=== PATIENT | male | born 2000 | race Caucasian/White ===

== ENCOUNTER 2019-10-18 01:48 | Emergency (ER) | payer MEDICAID ==
[~2019-10-18] VITALS: Ht 177.8 cm; Wt 110.0 kg
--- NOTE | 2019-10-18 03:19 | NUR ---
pt refused blood lab draw
--- NOTE | 2019-10-18 06:12 | NUR ---
pt provided a sandwich and drink
[2019-10-18 06:46] VITALS: BP 136/78
== END 2019-10-18 06:48 | disposition home or self-care (01) ==
LOC: ED 06:24
DX: F32.0 Major depressive disorder, single episode, mild (principal); R07.89 Other chest pain; F17.200 Nicotine dependence, unspecified, uncomplicated; Z76.5 Malingerer [conscious simulation]; Z72.9 Problem related to lifestyle, unspecified
CPT/HCPCS: 71046; 99284

== ENCOUNTER 2019-10-22 02:03 | Emergency (ER) | payer MEDICAID ==
[~2019-10-22] VITALS: Ht 180.3 cm; Wt 110.6 kg
[2019-10-22] MEDS ORDERED: DEXAMETHASONE 4 MG TABLET ONE (02:29)
[2019-10-22] MEDS ORDERED: DEXAMETHASONE 4 MG TABLET PO ONE (02:30)
--- NOTE | 2019-10-22 03:49 | NUR ---
Patient resting in gurney; watching tv.
[2019-10-22 03:51] VITALS: BP 109/64
--- NOTE | 2019-10-22 04:20 | NUR ---
Patient discharge instructions given. All questions and concerns addressed. Patient ambulatory with a steady gait. Belongings with patient.
== END 2019-10-22 04:21 | disposition home or self-care (01) ==
LOC: ED 04:06
DX: B34.9 Viral infection, unspecified (principal)
CPT/HCPCS: 71045; 99283

== ENCOUNTER 2019-10-24 07:03 | Emergency (ER) | payer MEDICAID ==
[~2019-10-24] VITALS: Ht 180.3 cm; Wt 114.0 kg
--- NOTE | 2019-10-24 07:23 | NUR ---
PATIENT BROUGHT BACK FROM TRIAGE WITH CHIEF COMPLAINT OF COUGH FOR A FEW WEEKS, WITH INTERMITTENT CHILLS. PT DENIES N/V, CP, SOB, OR RECENT TRAUMA.
[2019-10-24 08:13] VITALS: BP 145/76
--- NOTE | 2019-10-24 08:17 | NUR ---
DSCHARGE INSTRUCTIONS REVIEWED
== END 2019-10-24 08:27 | disposition home or self-care (01) ==
LOC: ED 08:25
DX: J06.9 Acute upper respiratory infection, unspecified (principal); H10.022 Other mucopurulent conjunctivitis, left eye; J20.9 Acute bronchitis, unspecified; R09.3 Abnormal sputum; F17.200 Nicotine dependence, unspecified, uncomplicated
CPT/HCPCS: 71046; 99283

== ENCOUNTER 2019-10-31 21:40 | Emergency (ER) | payer MEDICAID ==
[~2019-10-31] VITALS: Ht 180.3 cm; Wt 112.2 kg
[2019-10-31] MEDS ORDERED: DIPHENHYDRAMINE 25 MG CAPSULE ONE (22:21)
[2019-10-31] MEDS ORDERED: FAMOTIDINE 20 MG TABLET ONE (22:22)
[2019-10-31] MEDS ORDERED: DIPHENHYDRAMINE 25 MG CAPSULE PO ONE (22:30)
[2019-10-31] MEDS ORDERED: FAMOTIDINE 20 MG TABLET PO ONE (22:30)
--- NOTE | 2019-10-31 23:00 | NUR ---
PT RESTING COMFORTABLY, WATCHING TV. NO NEEDS AT THIS TIME.
--- NOTE | 2019-11-01 00:30 | NUR ---
PT RESTING WITH EYES CLOSED. 3PS ADDRESSED.
[2019-11-01 01:02] VITALS: BP 109/70
== END 2019-11-01 01:18 | disposition home or self-care (01) ==
LOC: ED 11-01 01:12
DX: R07.89 Other chest pain (principal); B86 Scabies
CPT/HCPCS: 71046; 93005; 99283; Q0163

== ENCOUNTER 2019-11-05 19:23 | Emergency (ER) | payer MEDICAID ==
[~2019-11-05] VITALS: Ht 177.8 cm; Wt 110.2 kg
[2019-11-05 19:37] VITALS: BP 102/50
--- NOTE | 2019-11-05 19:41 | NUR ---
Secured room, pt denies SI/SA at this time but states he thought about hurting himself and wants to go to [place] to get help.
[2019-11-05] MEDS ORDERED: CEPHALEXIN 500 MG CAPSULE PO ONE (20:00)
[2019-11-05] MEDS ORDERED: SULFAMETH./TRIMETHOPRIM DS 800MG/160MG TABLET PO ONE (20:00)
[2019-11-05] MEDS ORDERED: CEPHALEXIN 500 MG CAPSULE ONE (20:06)
[2019-11-05] MEDS ORDERED: SULFAMETH./TRIMETHOPRIM DS 800MG/160MG TABLET ONE (20:06)
--- NOTE | 2019-11-05 20:13 | NUR ---
Medicated per MAR, reviewed discharge information and rx with pt, pt verbalized understanding.
== END 2019-11-05 21:19 | disposition home or self-care (01) ==
LOC: ED 20:01
DX: F41.1 Generalized anxiety disorder (principal); L03.116 Cellulitis of left lower limb; L03.115 Cellulitis of right lower limb; B35.3 Tinea pedis; F17.210 Nicotine dependence, cigarettes, uncomplicated
CPT/HCPCS: 99283

== ENCOUNTER 2020-01-28 15:38 | Emergency (ER) | payer MEDICAID ==
[~2020-01-28] VITALS: Ht 180.3 cm; Wt 106.0 kg
[2020-01-28 15:52] VITALS: BP 126/68
--- NOTE | 2020-01-28 15:58 | NUR ---
STEPHANIE. REPORT RECEIVED FROM EMS. PT LIVES AT [facility]F AND STATED"I WILL GET A GUN". [facility] SHOWED UP. PT THREATENED STAFF AT SNF. PT DENIES SI/HI. NO [facility] HOLD BY PRD. PT'S AOX4. RESPS EVEN AND UNLABORED. OFF MEDS FOR 9 MONTHS. PT STATES "I WANNA GO TO [place] AFTER HERE." EDMD AT BEDSIDE TO EVALUATE AT THIS TIME. NO MEDICAL COMPLAINS. PT REFUSED TO CHANGE.
--- NOTE | 2020-01-28 16:59 | NUR ---
Patient given discharge instructions and they have confirmed that they understand the instructions. Patient ambulatory with steady gait.
== END 2020-01-28 17:00 | disposition home or self-care (01) ==
LOC: ED 16:40
DX: F33.9 Major depressive disorder, recurrent, unspecified (principal)
CPT/HCPCS: 99284

== ENCOUNTER 2020-02-01 18:37 | Emergency (ER) | payer MEDICAID ==
[~2020-02-01] VITALS: Ht 177.8 cm; Wt 113.1 kg
[2020-02-01 18:38] VITALS: BP 141/65
[2020-02-01] MEDS ORDERED: IBUPROFEN 600 MG TABLET PO ONE (19:30)
[2020-02-01] MEDS ORDERED: ACETAMINOPHEN 500 MG TABLET PO ONE (19:30)
[2020-02-01] MEDS ORDERED: ACETAMINOPHEN 500 MG TABLET ONE (19:45)
[2020-02-01] MEDS ORDERED: IBUPROFEN 600 MG TABLET ONE (19:45)
== END 2020-02-01 20:39 | disposition home or self-care (01) ==
LOC: ED 19:30
DX: R51 Headache (principal); F17.200 Nicotine dependence, unspecified, uncomplicated; Z72.9 Problem related to lifestyle, unspecified
CPT/HCPCS: 99283

== ENCOUNTER 2020-04-14 22:05 | Emergency (ER) | payer MEDICAID ==
[~2020-04-14] VITALS: Ht 172.7 cm; Wt 94.0 kg
[2020-04-14 22:07] VITALS: BP 120/88
[2020-04-14] MEDS ORDERED: ONDANSETRON ODT 4 MG PO ONE (22:30)
[2020-04-14] MEDS ORDERED: DIPHENHYDRAMINE 25 MG CAPSULE PO ONE (22:30)
[2020-04-14] MEDS ORDERED: ACETAMINOPHEN 325 MG TABLET PO ONE (22:30)
[2020-04-14] MEDS ORDERED: ONDANSETRON ODT 4 MG ONE (23:10)
[2020-04-14] MEDS ORDERED: DIPHENHYDRAMINE 25 MG CAPSULE ONE (23:11)
[2020-04-14] MEDS ORDERED: ACETAMINOPHEN 325 MG TABLET ONE (23:11)
== END 2020-04-14 23:46 ==
LOC: ED 23:00
DX: G43.009 Migraine without aura, not intractable, without status migrainosus (principal)
CPT/HCPCS: 99284; Q0162; Q0163

== ENCOUNTER 2020-04-16 19:30 | Emergency (ER) | payer MEDICAID ==
[~2020-04-16] VITALS: Ht 177.8 cm; Wt 109.1 kg
--- NOTE | 2020-04-16 19:30 | NUR ---
PT IS HOMELESS, BIB [facility]. PER EMS, PT C/O SI AND HI, STATED, "I'M GONNA KNOCK SOMEBODY". ERP AT BEDSIDE IMMEDIATELY. UPON ARRIVAL TO ED, PT REQUESTED TO HAVE FOOD AND WATCH TV. PT RESTLESS, WALKING AROUND ROOM. REPORTS FEELINGS OF SI BUT DENIES ANY PLAN AND STATES, "I'M FEELING LESS SO NOW". RV'WD POC WITH PT. VSS.
[2020-04-16 19:31] VITALS: BP 112/52
--- NOTE | 2020-04-16 19:37 | NUR ---
PER ERP PT SAFE TO DC AFTER MEAL AND [facility] REQ
--- NOTE | 2020-04-16 20:20 | NUR ---
PT EATING CHEETOS FROM HIS BACKPACK AND WATCHING TV. SANDWICH AND WATER PROVIDED. STAFF AT [facility] STATED THAT PT MAY RETURN TO [facility].
--- NOTE | 2020-04-16 20:44 | NUR ---
D/C INSTRUCTIONS & F/U APPT'S RV'WD WITH PT, HE VERBALIZES UNDERSTANDING. CAB VOUCHER PROVIDED TO [facility]. PT AMBULATED OUT OF ED WITHOUT DIFFICULTY.
== END 2020-04-16 20:45 | disposition home or self-care (01) ==
LOC: ED 20:07
DX: F33.9 Major depressive disorder, recurrent, unspecified (principal); R45.851 Suicidal ideations; F17.200 Nicotine dependence, unspecified, uncomplicated; Z76.5 Malingerer [conscious simulation]
CPT/HCPCS: 99283

== ENCOUNTER 2020-04-21 21:27 | Emergency (ER) | payer MEDICAID ==
[~2020-04-21] VITALS: Ht 177.8 cm; Wt 111.0 kg
[2020-04-21 21:54] VITALS: BP 131/79
[2020-04-21 22:35] LABS: BASOPHILS # (AUTO) 0.09 x10^3/uL (0-0.3); BASOPHILS % (AUTO) 1 % (0-1); EOSINOPHILS # (AUTO) 0.15 x10^3/uL (0-0.8); EOSINOPHILS % (AUTO) 2 % (1-7); LYMPHOCYTES # (AUTO) 3.11 x10^3/uL (1-6.1); LYMPHOCYTES % (AUTO) 37 % (22-44); MD NO; MEAN CORPUSCULAR HEMOGLOBIN 27.5 pg (27.5-34.5); MEAN CORPUSCULAR HGB CONC 32.7 g/dL (33.2-36.2); MEAN PLATELET VOLUME 9.1 fL (7.4-10.4); MONOCYTES # (AUTO) 0.69 x10^3/uL (0-1.4); MONOCYTES % (AUTO) 8 % (2-9); NEUTROPHILS # (AUTO) 4.47 x10^3/uL (1.8-8.0); NEUTROPHILS % (AUTO) 53 % (42-75); PLATELET COUNT 291 x10^3/uL (130-400); RED BLOOD COUNT 5.03 x10^6/uL (4.38-5.82); RED CELL DISTRIBUTION WIDTH 13.4 % (9.4-14.8)
[2020-04-21 22:44] LABS: ALANINE AMINOTRANSFERASE 30 U/L (12-78); ALBUMIN 4.1 g/dL (3.4-5.0); ANION GAP 7 mmol/L (5-15); CALCIUM 8.9 mg/dL (8.5-10.1); CHLORIDE 109 mmol/L (98-107); CREATININE 1.08 mg/dL (0.7-1.3)
[2020-04-21 22:50] LABS: ALKALINE PHOSPHATASE 120 U/L (45-117); BILIRUBIN,TOTAL 0.4 mg/dL (0.2-1.0); TOTAL PROTEIN 7.9 g/dL (6.4-8.2)
== END 2020-04-21 23:08 | disposition left against medical advice (07) ==
LOC: ED 21:50
DX: R10.11 Right upper quadrant pain (principal); R10.13 Epigastric pain; R11.0 Nausea
CPT/HCPCS: 36415; 80053; 83690; 85025; 99283

== ENCOUNTER 2020-05-08 14:22 | Inpatient (IN) | payer MEDICAID ==
[~2020-05-08] VITALS: Ht 177.8 cm; Wt 115.6 kg
[2020-05-08] MEDS ORDERED: ONDANSETRON ODT 4 MG PO PRN (15:00)
[2020-05-08] MEDS ORDERED: POLYETHYLENE GLYCOL 17 GM PACKET PO PRN (15:00)
[2020-05-08] MEDS ORDERED: DOCUSATE 100 MG CAPSULE PO PRN (15:00)
[2020-05-08] MEDS ORDERED: ACETAMINOPHEN 325 MG TABLET PO PRN (15:00)
[2020-05-08 15:56] VITALS: BP 119/82
[2020-05-08] MEDS ORDERED: PLEASE ENTER HEIGHT AND WEIGHT MC SCH (16:00)
[2020-05-08] MEDS ORDERED: HYDR25CA94 PO (16:56)
[2020-05-08 18:46] VITALS: BP 135/80
[2020-05-09 07:15] VITALS: BP 118/45
[2020-05-09] MEDS: BUPROPION SR 150 MG TABLET PO SCH (12:26)
[2020-05-09 19:53] VITALS: BP 119/72
[2020-05-10 07:00] VITALS: BP 114/70
[2020-05-10] MEDS: BUPROPION SR 150 MG TABLET PO SCH (08:33)
[2020-05-10 18:41] VITALS: BP 130/81
[2020-05-10] MEDS: CARBAMAZEPINE 200 MG TABLET PO SCH (20:16)
[2020-05-10] MEDS ORDERED: DIPHENHYDRAMINE 50 MG CAPSULE ONE (22:59)
[2020-05-11 07:00] VITALS: BP 115/73
[2020-05-11] MEDS: BUPROPION SR 150 MG TABLET PO SCH (08:39)
[2020-05-11] MEDS: CARBAMAZEPINE 200 MG TABLET PO SCH (08:41)
== END 2020-05-11 15:32 | disposition left against medical advice (07) | DRG 770 ==
LOC: 3E 15:20
PROVIDERS: ADMIT Psychiatry & Neurology Psychosomatic Medicine; ATTEND Psychiatry & Neurology Psychosomatic Medicine
DX: F12.10 Cannabis abuse, uncomplicated (principal); F31.30 Bipolar disorder, current episode depressed, mild or moderate severity, unspecified; F60.9 Personality disorder, unspecified; F90.9 Attention-deficit hyperactivity disorder, unspecified type; J45.909 Unspecified asthma, uncomplicated; E66.9 Obesity, unspecified; R45.851 Suicidal ideations; F17.200 Nicotine dependence, unspecified, uncomplicated; Q86.0 Fetal alcohol syndrome (dysmorphic); Z59.0 Homelessness; Z91.14 Patient's other noncompliance with medication regimen; Z91.19 Patient's noncompliance with other medical treatment and regimen; Z81.8 Family history of other mental and behavioral disorders; Z83.3 Family history of diabetes mellitus; Z80.9 Family history of malignant neoplasm, unspecified; Z82.49 Family history of ischemic heart disease and other diseases of the circulatory system; Z91.018 Allergy to other foods; Z79.899 Other long term (current) drug therapy
CPT/HCPCS: 71045; 93005